=== PATIENT | female | born 1980 | race African-American/Black ===

== ENCOUNTER 2017-01-04 12:25 | Emergency (ER) | payer MEDICARE, MEDICAID ==
[~2017-01-04] VITALS: Ht 165.1 cm; Wt 95.3 kg
[2017-01-04 13:51] LABS: Basophils # (auto) 0 uL; Basophils % (auto) 0.3 % (0.0-2.0); Eosinophils # (auto) 0 uL; Eosinophils % (auto) 0.6 % (0.0-7.0); Hematocrit 39.6 % (36.0-46.0); Hemoglobin 12.8 g/dL (12.2-16.2); Lymphocytes # (auto) 1.7 uL; Lymphocytes % (auto) 27.7 % (10.0-50.0); Mean Corpuscular Hemoglobin 28.4 pg (28.0-32.0); Mean Corpuscular Hgb Conc. 32.3 g/dL (32.0-36.0); Mean Corpuscular Volume 87.9 fL (80.0-100.0); Mean Platelet Volume 9.9 fL (7.4-10.4); Monocytes # (auto) 0.4 uL; Monocytes % (auto) 7.1 % (0.0-12.0); Neutrophils % (auto) 64.3 % (37.0-80.0); Platelet Count (auto) 201 10^3/uL (140-450); Red Cell Distribution Width 14.6 % (11.6-16.0); SUSPECT VIEW TRANSMISSION; White Blood Cell 6.2 10^3/uL (4.4-10.8)
[2017-01-04 13:56] VITALS: BP 129/77
[2017-01-04] MEDS ORDERED: MORPHINE SULF INJ 2 MG/ML SYRINGE 1ML IM ONE (14:15)
[2017-01-04 14:39] LABS: Chloride 108 mmol/L (98-107); Potassium 4.2 mmol/L (3.5-5.1); Sodium 143 mmol/L (136-145)
[2017-01-04 14:46] LABS: Albumin 3.6 g/dL (3.4-5.0); Alkaline Phosphatase 67 U/L (45-117); Anion Gap 11 (5-15); Aspartate Aminotransferase 14 U/L (15-37); BUN/Creatinine Ratio 11.5; Bilirubin, Total 1.3 mg/dL (0.2-1.0); Blood Urea Nitrogen 9 mg/dL (7-18); Calcium 9.1 mg/dL (8.5-10.1); Carbon Dioxide 24 mmol/L (21-32); GFR African American 106 mL/min; GFR Non-African American 88 mL/min; Glucose 95 mg/dL (74-106); Total Protein 6.8 g/dL (6.4-8.2)
== END 2017-01-04 15:26 | disposition home or self-care (01) ==
LOC: ER 12:30
DX: J40 Bronchitis, not specified as acute or chronic (principal); R07.81 Pleurodynia; J44.9 Chronic obstructive pulmonary disease, unspecified; Z88.6 Allergy status to analgesic agent; Z95.2 Presence of prosthetic heart valve
CPT/HCPCS: 36415; 71020; 80053; 84484; 85025; 93005; 94761; 96372; 99285; J2270

== ENCOUNTER 2018-04-18 09:44 | Inpatient (IN) | payer OTHER, MEDICAID ==
[~2018-04-18] VITALS: Ht 165.1 cm; Wt 100.2 kg
[2018-04-18 10:38] LABS: Basophils # (auto) 0.1 uL; Basophils % (auto) 1.2 % (0.0-2.0); Eosinophils # (auto) 0.1 uL; Eosinophils % (auto) 1.1 % (0.0-7.0); Hematocrit 35.1 % (36.0-46.0); Hemoglobin 11.6 g/dL (12.2-16.2); Lymphocytes # (auto) 1.8 uL; Mean Corpuscular Hemoglobin 28.5 pg (28.0-32.0); Mean Corpuscular Hgb Conc. 32.9 g/dL (32.0-36.0); Mean Corpuscular Volume 86.4 fL (80.0-100.0); Monocytes # (auto) 0.5 uL; Monocytes % (auto) 8.7 % (0.0-12.0); Neutrophils # (auto) 3.4 uL; Nucleated Red Blood Cells % 0.2 %; Platelet Count (auto) 163 10^3/uL (140-450); Red Blood Cells 4.06 10^6/uL (4.0-5.20); Red Cell Distribution Width 13.8 % (11.8-14.3); White Blood Cell 5.9 10^3/uL (4.4-10.8)
[2018-04-18 11:00] LABS: Alanine Aminotransferase 18 U/L (13-56); Albumin 3.8 g/dL (3.4-5.0); Alkaline Phosphatase 83 U/L (45-117); Anion Gap 11 (5-15); Aspartate Aminotransferase 15 U/L (15-37); BUN/Creatinine Ratio 10.8; Bilirubin, Total 1.4 mg/dL (0.2-1.0); Blood Urea Nitrogen 9 mg/dL (7-18); Calcium 8.9 mg/dL (8.5-10.1); Carbon Dioxide 23 mmol/L (21-32); Chloride 106 mmol/L (98-107); GFR African American 98 mL/min; GFR Non-African American 81 mL/min; Glucose 89 mg/dL (74-106); Magnesium 2.1 mg/dL (1.6-2.6); Potassium 3.5 mmol/L (3.5-5.1); Sodium 140 mmol/L (136-145); Total Protein 7.6 g/dL (6.4-8.2)
[2018-04-18] MEDS ORDERED: FUROSEMIDE 20 MG TAB PO ONE (11:45)
[2018-04-18] MEDS ORDERED: NITROGLYCERIN 0.4 MG SL TAB SL PRN ×2 (11:45)
[2018-04-18] MEDS ORDERED: MORPHINE SULF INJ 2 MG/ML SYRINGE 1ML IV PRN (11:45)
[2018-04-18] MEDS ORDERED: ZOLPIDEM TARTRATE 5 MG TAB PO PRN (11:45)
[2018-04-18] MEDS ORDERED: LORazepam 0.5 MG TAB PO PRN (11:45)
[2018-04-18] MEDS ORDERED: ONDANSETRON HCL 4 MG/2 ML VIAL IV PRN (11:45)
[2018-04-18] MEDS ORDERED: POTASSIUM CHL 10 Meq TABLET PO ONE (11:45)
[2018-04-18] MEDS ORDERED: ALUM & MAG HYDROX-SIMETH LIQ(MAALOX) 30 ML PO ONE (11:45)
[2018-04-18] MEDS: MORPHINE SULFATE 4 MG/ML SYR/VIAL IV PRN ×2 (12:54→20:10)
[2018-04-18] MEDS: CALCIUM CARB 500 MG CHEW TAB PO SCH ×2 (13:10→21:35)
[2018-04-18 13:47] LABS: Urine Amorphous Crystal FEW /hpf (None Seen); Urine Bacteria FEW /hpf (None Seen); Urine Blood 1+ /uL (Negative); Urine Mucus FEW (None Seen); Urine Specific Gravity 1.011 (1.001-1.035); Urine WBC 27 /hpf (0 - 5)
[2018-04-18 14:26] LABS: INR 1.98 (0.9-1.15); Partial Thromboplastin Time 36.9 sec (23.78-33.04); Prothrombin Time 20.4 sec (9.27-12.13)
[2018-04-18 14:37] VITALS: BP 132/76
[2018-04-18] MEDS ORDERED: WARF6TAB21 PO (16:36)
[2018-04-18] MEDS ORDERED: HYDRX10T PO (16:36)
[2018-04-18] MEDS ORDERED: ASPI325T4 PO (16:36)
[2018-04-18] MEDS ORDERED: FURO20TA GT (16:36)
[2018-04-18] MEDS ORDERED: METO-169 PO (16:36)
[2018-04-18 17:00] VITALS: BP 119/68
[2018-04-18] MEDS ORDERED: WARFARIN SODIUM 2.5 MG TAB PO ONE (17:00)
[2018-04-18] MEDS: FUROSEMIDE 20 MG TAB PO SCH (17:33)
[2018-04-18] MEDS: SODIUM CHLOR 0.9% PF (SALINE LOCK) 10ML VIAL/SYR IV SCH ×2 (17:35→21:36)
[2018-04-18] MEDS ORDERED: cefTRIAXone 1GM/10ml IVPUSH 10 ML IV ONE (20:15)
[2018-04-18] MEDS: POTASSIUM CHL 10 Meq TABLET PO SCH (21:35)
[2018-04-18] MEDS: ATORVASTATIN 20 MG TAB PO SCH (21:36)
[2018-04-18] MEDS: ENALAPRIL MALEATE 2.5 MG TAB PO SCH (21:36)
[2018-04-18] MEDS: METOPROLOL TARTRATE 25 MG TAB PO SCH (21:37)
[2018-04-18 22:00] VITALS: BP 141/82
[2018-04-19 05:24] VITALS: BP 100/63
[2018-04-19] MEDS: SODIUM CHLOR 0.9% PF (SALINE LOCK) 10ML VIAL/SYR IV SCH ×3 (06:00→20:45)
[2018-04-19] MEDS: FUROSEMIDE 20 MG TAB PO SCH ×2 (06:00→18:00)
[2018-04-19] MEDS: ACETAMINOPHEN 325 MG TAB PO PRN ×2 (06:44→20:44)
[2018-04-19 06:50] LABS: Basophils # (auto) 0 uL; Basophils % (auto) 0.7 % (0.0-2.0); Eosinophils # (auto) 0.1 uL; Eosinophils % (auto) 1.6 % (0.0-7.0); Hematocrit 40.2 % (36.0-46.0); Hemoglobin 13.3 g/dL (12.2-16.2); Lymphocytes # (auto) 1.5 uL; Lymphocytes % (auto) 24.7 % (10.0-50.0); Mean Corpuscular Hemoglobin 28.6 pg (28.0-32.0); Mean Corpuscular Volume 86.9 fL (80.0-100.0); Monocytes # (auto) 0.5 uL; Monocytes % (auto) 7.8 % (0.0-12.0); Neutrophils # (auto) 3.9 uL; Neutrophils % (auto) 65.2 % (37.0-80.0); Nucleated Red Blood Cells % 0.1 %; Platelet Count (auto) 178 10^3/uL (140-450); Red Blood Cells 4.63 10^6/uL (4.0-5.20); Red Cell Distribution Width 14.1 % (11.8-14.3)
[2018-04-19 06:59] LABS: INR 1.7 (0.9-1.15); Partial Thromboplastin Time 37.4 sec (23.78-33.04); Prothrombin Time 17.7 sec (9.27-12.13)
[2018-04-19 07:29] LABS: BUN/Creatinine Ratio 8.2; Bilirubin, Total 1.2 mg/dL (0.2-1.0); Calcium 9.7 mg/dL (8.5-10.1); Magnesium 2.2 mg/dL (1.6-2.6); Potassium 3.9 mmol/L (3.5-5.1); Total Protein 7.8 g/dL (6.4-8.2)
[2018-04-19 09:45] VITALS: BP 103/57
[2018-04-19] MEDS: ENALAPRIL MALEATE 2.5 MG TAB PO SCH ×2 (10:00→20:45)
[2018-04-19] MEDS: ASPirin 81 mg TAB PO SCH (10:01)
[2018-04-19] MEDS: cefTRIAXone 1GM/10ml IVPUSH 10 ML IV SCH (10:01)
[2018-04-19] MEDS: CALCIUM CARB 500 MG CHEW TAB PO SCH ×2 (10:02→20:45)
[2018-04-19] MEDS: DOCUSATE SOD 100 MG CAP PO SCH (10:02)
[2018-04-19] MEDS: POTASSIUM CHL 10 Meq TABLET PO SCH ×2 (10:02→20:44)
[2018-04-19] MEDS: CLOPIDOGREL BISULFATE 75 MG TAB PO SCH (10:02)
[2018-04-19] MEDS: METOPROLOL TARTRATE 25 MG TAB PO SCH ×2 (10:03→20:43)
[2018-04-19 12:30] VITALS: BP 92/57
[2018-04-19] MEDS: IBUPROFEN 800 MG TAB PO PRN ×2 (12:45→20:44)
[2018-04-19] MEDS ORDERED: WARFARIN SODIUM 2.5 MG TAB PO ONE (17:00)
[2018-04-19 17:25] VITALS: BP 80/45
[2018-04-19] MEDS: ATORVASTATIN 20 MG TAB PO SCH (20:45)
[2018-04-19] MEDS: hydrOXYzine HCL 10 MG TAB PO PRN (20:48)
[2018-04-19 21:47] VITALS: BP 110/56
[2018-04-20 05:00] VITALS: BP 90/39
[2018-04-20] MEDS: FUROSEMIDE 20 MG TAB PO SCH (05:20)
[2018-04-20] MEDS: SODIUM CHLOR 0.9% PF (SALINE LOCK) 10ML VIAL/SYR IV SCH ×3 (05:20→22:18)
[2018-04-20 06:07] LABS: Basophils # (auto) 0 uL; Basophils % (auto) 0.7 % (0.0-2.0); Eosinophils # (auto) 0.1 uL; Eosinophils % (auto) 1.3 % (0.0-7.0); Hemoglobin 12.5 g/dL (12.2-16.2); Lymphocytes # (auto) 1.9 uL; Mean Corpuscular Hemoglobin 28.6 pg (28.0-32.0); Mean Corpuscular Volume 86.9 fL (80.0-100.0); Monocytes # (auto) 0.6 uL; Monocytes % (auto) 10.1 % (0.0-12.0); Neutrophils # (auto) 3.6 uL; Neutrophils % (auto) 57.9 % (37.0-80.0); Nucleated Red Blood Cells % 0.2 %; Platelet Count (auto) 178 10^3/uL (140-450); Red Blood Cells 4.38 10^6/uL (4.0-5.20); Red Cell Distribution Width 13.8 % (11.8-14.3); White Blood Cell 6.3 10^3/uL (4.4-10.8)
[2018-04-20 06:13] LABS: INR 1.85 (0.9-1.15); Partial Thromboplastin Time 36.8 sec (23.78-33.04); Prothrombin Time 19.1 sec (9.27-12.13)
[2018-04-20 06:26] LABS: Albumin 3.7 g/dL (3.4-5.0); BUN/Creatinine Ratio 15.1; Bilirubin, Total 0.7 mg/dL (0.2-1.0); Calcium 9.1 mg/dL (8.5-10.1); Potassium 4.1 mmol/L (3.5-5.1); Total Protein 7.4 g/dL (6.4-8.2)
[2018-04-20 09:09] VITALS: BP 122/56
[2018-04-20] MEDS: DOCUSATE SOD 100 MG CAP PO SCH (09:31)
[2018-04-20] MEDS: POTASSIUM CHL 10 Meq TABLET PO SCH (09:31)
[2018-04-20] MEDS: cefTRIAXone 1GM/10ml IVPUSH 10 ML IV SCH (09:31)
[2018-04-20] MEDS: CALCIUM CARB 500 MG CHEW TAB PO SCH ×2 (09:31→22:26)
[2018-04-20] MEDS: CLOPIDOGREL BISULFATE 75 MG TAB PO SCH (09:32)
[2018-04-20] MEDS: ASPirin 81 mg TAB PO SCH (09:32)
[2018-04-20] MEDS: METOPROLOL TARTRATE 25 MG TAB PO SCH ×2 (09:33→22:00)
[2018-04-20 14:31] VITALS: BP 99/61
[2018-04-20] MEDS ORDERED: PANTOPRAZOLE 40 MG/10 ML VIAL IV ONE (16:30)
[2018-04-20] MEDS ORDERED: IBUPROFEN 800 MG TAB PO PRN (16:30)
[2018-04-20] MEDS ORDERED: ALUM & MAG HYDROX-SIMETH LIQ(MAALOX) 30 ML PO ONE (16:30)
[2018-04-20] MEDS ORDERED: WARFARIN SODIUM 10 MG TAB PO ONE (17:00)
[2018-04-20 17:07] VITALS: BP 91/42
[2018-04-20] MEDS ORDERED: ALUM & MAG HYDROX-SIMETH LIQ(MAALOX) 30 ML PO PRN (20:45)
[2018-04-20 21:54] VITALS: BP 109/70
[2018-04-20] MEDS: ATORVASTATIN 20 MG TAB PO SCH (22:25)
[2018-04-20] MEDS: hydrOXYzine HCL 10 MG TAB PO PRN (22:25)
[2018-04-20] MEDS: ACETAMINOPHEN 325 MG TAB PO PRN (22:26)
[2018-04-21 05:32] VITALS: BP 105/55
[2018-04-21] MEDS: SODIUM CHLOR 0.9% PF (SALINE LOCK) 10ML VIAL/SYR IV SCH ×3 (05:46→23:01)
[2018-04-21 06:33] LABS: BUN/Creatinine Ratio 19.4; Calcium 8.7 mg/dL (8.5-10.1)
[2018-04-21 06:40] LABS: INR 2.11 (0.9-1.15); Prothrombin Time 21.6 sec (9.27-12.13)
[2018-04-21 09:04] VITALS: BP 93/37
[2018-04-21] MEDS: cefTRIAXone 1GM/10ml IVPUSH 10 ML IV SCH (09:26)
[2018-04-21] MEDS: CALCIUM CARB 500 MG CHEW TAB PO SCH ×2 (09:26→22:16)
[2018-04-21] MEDS: PANTOPRAZOLE 40 MG/10 ML VIAL IV SCH (09:26)
[2018-04-21] MEDS: POTASSIUM CHL 10 Meq TABLET PO SCH (09:27)
[2018-04-21] MEDS: ASPirin 81 mg TAB PO SCH (09:27)
[2018-04-21] MEDS: DOCUSATE SOD 100 MG CAP PO SCH (09:27)
[2018-04-21] MEDS: FUROSEMIDE 20 MG TAB PO SCH (09:27)
[2018-04-21] MEDS: METOPROLOL TARTRATE 25 MG TAB PO SCH ×2 (09:28→22:17)
[2018-04-21 11:54] VITALS: BP 94/64
[2018-04-21 16:54] VITALS: BP 101/49
[2018-04-21] MEDS ORDERED: WARFARIN SODIUM 2.5 MG TAB PO ONE (17:00)
[2018-04-21 20:00] VITALS: BP 113/55
[2018-04-21 22:00] VITALS: BP 113/55
[2018-04-21] MEDS: hydrOXYzine HCL 10 MG TAB PO PRN (22:16)
[2018-04-21] MEDS: ATORVASTATIN 20 MG TAB PO SCH (23:01)
[2018-04-22 05:00] VITALS: BP 110/60
[2018-04-22] MEDS: SODIUM CHLOR 0.9% PF (SALINE LOCK) 10ML VIAL/SYR IV SCH ×2 (05:31→13:01)
[2018-04-22 06:28] LABS: INR 1.89 (0.9-1.15); Partial Thromboplastin Time 38.3 sec (23.78-33.04); Prothrombin Time 19.5 sec (9.27-12.13)
[2018-04-22 06:38] LABS: Albumin 3.8 g/dL (3.4-5.0); BUN/Creatinine Ratio 20.2; Bilirubin, Total 0.5 mg/dL (0.2-1.0); Total Protein 7.7 g/dL (6.4-8.2)
[2018-04-22 08:00] VITALS: BP 128/59
[2018-04-22 09:00] VITALS: BP 128/59
[2018-04-22] MEDS: cefTRIAXone 1GM/10ml IVPUSH 10 ML IV SCH (10:06)
[2018-04-22] MEDS: FUROSEMIDE 20 MG TAB PO SCH (10:07)
[2018-04-22] MEDS: PANTOPRAZOLE 40 MG/10 ML VIAL IV SCH (10:07)
[2018-04-22] MEDS: DOCUSATE SOD 100 MG CAP PO SCH (10:07)
[2018-04-22] MEDS: CALCIUM CARB 500 MG CHEW TAB PO SCH (10:07)
[2018-04-22] MEDS: POTASSIUM CHL 10 Meq TABLET PO SCH (10:07)
[2018-04-22] MEDS: ASPirin 81 mg TAB PO SCH (10:07)
[2018-04-22] MEDS: METOPROLOL TARTRATE 25 MG TAB PO SCH (10:08)
[2018-04-22 13:00] VITALS: BP 110/66
[2018-04-22 16:24] VITALS: BP 110/66
[2018-04-22] MEDS ORDERED: WARFARIN SODIUM 2.5 MG TAB PO ONE (17:00)
== END 2018-04-22 17:35 | disposition home or self-care (01) | DRG 291 ==
LOC: ER 09:44 → EDBD 09:44 → TELE 09:45 → TELE-WESTW 14:11
PROVIDERS: ADMIT Internal Medicine; ATTEND Internal Medicine Pulmonary Disease
DX: I11.0 Hypertensive heart disease with heart failure (principal); N17.0 Acute kidney failure with tubular necrosis; N39.0 Urinary tract infection, site not specified; D68.9 Coagulation defect, unspecified; R07.89 Other chest pain; I50.43 Acute on chronic combined systolic (congestive) and diastolic (congestive) heart failure; D63.8 Anemia in other chronic diseases classified elsewhere; E66.01 Morbid (severe) obesity due to excess calories; I25.10 Atherosclerotic heart disease of native coronary artery without angina pectoris; Z83.3 Family history of diabetes mellitus; Z95.1 Presence of aortocoronary bypass graft; Z95.2 Presence of prosthetic heart valve; Z79.899 Other long term (current) drug therapy; Z79.82 Long term (current) use of aspirin; Z95.0 Presence of cardiac pacemaker; Z88.5 Allergy status to narcotic agent; Z82.49 Family history of ischemic heart disease and other diseases of the circulatory system; T50.1X5A Adverse effect of loop [high-ceiling] diuretics, initial encounter; Y92.239 Unspecified place in hospital as the place of occurrence of the external cause; Z68.36 Body mass index [BMI] 36.0-36.9, adult
CPT/HCPCS: 36415; 71046; 80048; 80053; 80061; 81001; 83735; 83880; 84443; 84484; 85025; 85610; 85730; 87086; 87088; 87186; 93005; 93306; 96374; C9113; J0696; J2405